=== PATIENT | male | born 1960 | race Caucasian/White ===

== ENCOUNTER 2024-01-10 19:06 | Emergency (ER) | payer OTHER, SELFPAY ==
[2024-01-10 19:13] VITALS: BP 145/88; PULSE 74; RESP 20; TEMP 36.9; O2SAT 99; BMI 36.3
--- NOTE | 2024-01-10 19:33 | ED_ITS ---
HPI - General Adult General Chief complaint: Skin/Abscess/Foreign Body Stated complaint: L hand very swollen/red/painful Time Seen by Provider: 01/10/24 19:12 History of Present Illness HPI narrative: This 63-year-old male comes in with pain and swelling with erythema in his left hand. He states that symptoms began about 4 days ago. He does not report any injury event or strenuous activity. He does state that he has a history of gout and did take some gout medicine but did not have any improvement. He does not report any fevers. Related Data Home Medications ?Medication ?Instructions ?Recorded ?Confirmed allopurinol 100 mg tablet 100 mg PO DAILY 01/10/24 01/10/24 Allergies Allergy/AdvReac Type Severity Reaction Status Date / Time No Known Drug Allergies Allergy Verified 01/10/24 19:16 Review of Systems Status of ROS: Reports: 10 or more systems reviewed and unremarkable except as noted in History and below Narrative: Constitutional: No fevers, no weight gain or loss. Eyes: No discharge. No vision changes. HENT: No congestion, no sore throat, no ear pain. Cardiovascular: No chest pain, no palpitations. Respiratory: No shortness of breath, no wheezes, no cough. Gastrointestinal: No abdominal pain, no vomiting, no diarrhea. Genitourinary: No dysuria, no hematuria. Musculoskeletal: Left hand pain and swelling with associated decreased range of motion. Skin: No rashes, no pruritis. Neurological: No dizziness, weakness, sensory change, speech change. Endo/Heme/Allergies: No bruising or bleeding. No polydipsia. Pysch: no suicidality, no anxiety, no insomnia. All other systems reviewed and are negative. Exam Narrative: Exam Narrative: Constitutional: Well-developed, well-nourished, no acute distress. HEENT: Normocephalic, atraumatic. Neck: Normal range of motion. Nontender. Supple. Heart: Intact distal pulses. Lungs: No chest discomfort. No wheezes, rhonchi, or rales. Abdomen: Nontender. Back: Normal range of motion. Extremities: Normal range of motion. No injury. Left hand has significant swelling with decreased range of motion. There is increased warmth Skin: Intact. No rash. Warm. No erythema or pallor. Neurologic: No altered sensation. No weakness. Alert and oriented. Psychiatric: No suicidality. No anxiety or depression. No insomnia. Nursing notes and vitals signs are reviewed. Const: Vital Signs, click to edit/add: Vital Signs - 24 hr 01/10/24 19:13 Temperature 98.5 F Pulse Rate [Right Pulse Oximeter] 74 Respiratory Rate 20 Blood Pressure [Le ft Upper Arm] 145/88 H Pulse Oximetry 99 Oxygen Delivery Me thod Room Air Course Vital Signs Vital signs: Initial Vital Signs Temperature 98.5 F 01/10/24 19:13 Temperature Source Temporal Artery Scan 01/10/24 19:13 Pulse Rate 74 01/10/24 19:13 Respiratory Rate 20 01/10/24 19:13 Blood Pressure 145/88 H 01/10/24 19:13 Blood Pressure Mean 107 H 01/10/24 19:13 Blood Pressure Position Sitting 01/10/24 19:13 Pulse Oximetry 99 01/10/24 19:13 Oxygen Delivery Method Room Air 01/10/24 19:13 Vital Signs Temperature 98.5 F 01/10/24 19:13 Pulse Rate 74 01/10/24 19:13 Respiratory Rate 20 01/10/24 19:13 Blood Pressure 145/88 H 01/10/24 19:13 Pulse Oximetry 99 01/10/24 19:13 Oxygen Delivery Method Room Air 01/10/24 19:13 Temperature 98.5 F 01/10/24 19:13 Pulse Rate 74 01/10/24 19:13 Respiratory Rate 20 01/10/24 19:13 Blood Pressure 145/88 H 01/10/24 19:13 Pulse Oximetry 99 01/10/24 19:13 Oxygen Delivery Method Room Air 01/10/24 19:13 Medical Decision Making MDM Narrative Medical decision making narrative: This patient comes in with left hand pain and swelling as described above. He did present to Urgent Care earlier today and did have labs drawn at that time. They returned with normal results. He was instructed to come here for evaluation. His hand appears to be showing symptoms that typical of cellulitis. There is no sign of injury. He arrives with normal vital signs. He received the prescription for Keflex and instructions were given regarding recovery and signs and symptoms that would indicate a need for return and re-evaluation. Discharge Plan Discharge Clinical Impression: Cellulitis Patient Disposition: Home, Self-Care Condition: Stable Additional Instructions: Take medication as prescribed. Use [id number] medicines also as needed and directed. Follow up with MD return if worsening. Prescriptions: No Action allopurinol 100 mg tablet 100 mg PO DAILY Follow Up/Referrals: Provider,Not a Local [Primary Care Provider] - Stand Alone Forms: [employer] Info Instructions
[2024-01-10 19:47] VITALS: BP 138/71; PULSE 79; RESP 20; TEMP 36.9; O2SAT 99
[2024-01-10 19:49] VITALS: BP 138/71; PULSE 79; RESP 20; TEMP 36.9
== END 2024-01-10 19:50 | disposition home or self-care (01) ==
LOC: ED 19:49
PROVIDERS: Emergency Provider Emergency Medicine Emergency Medical Services
DX: L03.114 Cellulitis of left upper limb (principal)
CPT/HCPCS: 85379; 99283; 99284